=== PATIENT | female | born 1935 | race Caucasian/White ===

== ENCOUNTER 2018-11-17 09:42 | Emergency (ER) | payer MEDICARE, OTHER ==
[~2018-11-17] VITALS: Ht 160 cm; Wt 53.8 kg
[2018-11-17 09:48] VITALS: Ht 160 cm; Wt 53.8 kg
[2018-11-17] MEDS ORDERED: ACETAMINOPHEN 500 MG TAB ONE (10:10)
[2018-11-17] MEDS ORDERED: ACETAMINOPHEN 500 MG TAB PO STA (10:10)
[2018-11-17] MEDS ORDERED: ACET500C5 PO (11:32)
[2018-11-17 12:23] VITALS: BP 139/70; PULSE 88; RESP 18
--- NOTE | 2018-11-17 15:07 | ERD ---
ER Documentation Chief Complaint Chief Complaint Rt kvng pain and knee pain s/p fall x 3 days ago. HPI Patient is a 83-year-old female, brought in by daughters, who presents the ER for concerns of right ankle and knee pain after fall injury 3 days ago. Per patient and her daughters, patient was getting into the car when she slipped and hit her leg on the floor. Patient has been reporting pain throughout her right lower leg. Patient is able to ablate however she lives per daughter. Patient has no fevers or chills. Patient has no previous fractures or dislocations. Patient denies any lightheadedness or dizziness prior to fall injury. ROS All systems reviewed and are negative except as per history of present illness. Medications Home Meds Active Scripts Acetaminophen* (Tylophen*) 500 Mg Capsule, 1 CAP PO Q6H PRN for PAIN AND OR ELEVATED TEMP, #20 CAP Prov:RAUL DEVRIES PA-C 11/17/18 PMhx/Soc Hx Miscellaneous Medical Probl: Yes (ARTHRITIS) Hx Alcohol Use: No Hx Substance Use: No Hx Tobacco Use: No Smoking Status: Never smoker FmHx Family History: No diabetes Physical Exam Vitals Vital Signs Date Temp Pulse Resp B/P (MAP) Pulse Ox O2 O2 Flow FiO2 Time Delivery Rate 11/17/18 98.0 88 18 139/70 99 Room Air 12:23 (93) 11/17/18 97.7 84 18 146/67 99 09:48 (93) Physical Exam GENERAL: Well-developed, well-nourished female. Appears in no acute distress. HEAD: Normocephalic, atraumatic. EYES: Pupils are equally reactive bilaterally. EOMs grossly intact. No conjunctival erythema. ENT: Moist mucous membranes. No uvula deviation. No kissing tonsils. NECK: Supple. No meningismus. Normal range of motion of the neck. LUNG: Clear to auscultation bilaterally. No rhonchi, wheezing, rales or coarse breath sounds. HEART: Regular rate and rhythm. No murmurs, rubs or gallops. EXTREMITIES: Equal pulses bilaterally. No peripheral clubbing, cyanosis or edema. No unilateral leg swelling. NEUROLOGIC: Alert and oriented. Moving all four extremities without any difficulty. Normal speech. Steady gait. RLE: Swelling noted throughout the knee joint as well as the lateral ankle.. Decreased range of motion of the knee and ankle secondary to pain. Tender to palpation over the anterior knee, lateral tibia/fibula and lateral ankle. Tender to palpation of the midfoot. Sensation intact to light touch. Neurovascularly intact. (Able to plantarflex, dorsiflex, nieves foot, invert foot, raise big toe.) 2+ DP and DT pulses. Results 24 hrs Current Medications Medications Dose Sig/Grace Start Time Status Last (Trade) Ordered Route PRN Stop Time Admin Dose Reason Admin 1,000 mg ONCE STAT 11/17/18 DC 11/17/18 Acetaminophen PO 10:10 10:15 (Tylenol 11/17/18 10:11 Tab) 500 mg STK-MED 11/17/18 DC Acetaminophen ONCE .ROUTE 10:10 (Tylenol 11/17/18 10:11 Tab) Procedures/MDM This ED COURSE: The patient was stable throughout ED course. I kept the patient and/or family informed of laboratory and diagnostic imaging results throughout the ED course. PROCEDURES: SPLINT APPLICATION: The patient was verbally consented at bedside prior to splint application. Patient was explained the risks, benefits and alternatives to this procedure. The patient was neurovascularly intact prior to and status post application of the splint. The patient tolerated the procedure well with no complications. Splint type: left short leg splint Extremity: left Indication: Tiny avulsion fracture of the inferior distal right fibula without other fracture or dislocation. MEDICATIONS GIVEN: Tylenol Patient tolerated medication well with no adverse reactions. Patient reported improvement in pain. MEDICAL DECISION MAKING: This is a 83-year-old female, brought in by daughter, presents the ER for concerns of right lower leg pain after trip and fall injury 3 days ago.. Vital signs were reviewed. Patient was afebrile. X-ray imaging of the knee showed moderate to severe degenerative joint changes. No fracture dislocation was noted. Tib-fib was unremarkable except for tiny avulsion fracture of the inferior distal right fibula. No other fractures were noted. See formal report. Patient was placed in short leg splint and given a walker to assist with ambulation. Patient will need to follow-up with wax specialist for further management of her symptoms. Low suspicion for compartment syndrome or septic joint. Unable to rule any ligament or tendon injuries. PRESCRIPTIONS: Tylenol DISCHARGE: At this time, patient is stable for discharge and outpatient management. I have instructed the patient to follow-up with his/her primary care physician in 1-2 days. I have discussed with the patient the possibility of needing to see an wax specialist for further workup and imaging if the pain persists. I have instructed the patient to promptly return to the ER for any new or worsening symptoms including increased pain, swelling, redness, warmth or fever. The patient and/or family expressed understanding of and agreement with this plan. All questions were answered. Home care instructions were provided. Patients blood pressure was elevated (>120/80) but appears stable without evidence of hypertensive emergency, hypertensive urgency or end-organ failure. I had discussion with the patient about the risks of hypertension. I have advised the patient to follow up with his/her primary care physician for outpatient monitoring and treatment for hypertension in 2-3 days. I have instructed the patient to return to the ER for any new or worsening symptoms including chest pain, shortness of breath, headache, blurred vision, confusion, nausea, vomiting or LOC. Disclaimer: Inadvertent spelling and grammatical errors are likely due to EHR/dictation software use and do not reflect on the overall quality of patient care. Also, please note that the electronic time recorded on this note does not necessarily reflect the actual time of the patient encounter. Departure Diagnosis: Primary Impression: Avulsion fracture of right ankle Encounter type: initial encounter Fracture type: closed Qualified Codes: S82.891A - Other fracture of right lower leg, initial encounter for closed fracture Condition: Fair Patient Instructions: Ankle Fracture (Distal Fibula), Closed Referrals: [facility] YOU HAVE RECEIVED A MEDICAL SCREENING EXAM AND THE RESULTS INDICATE THAT YOU DO NOT HAVE A CONDITION THAT REQUIRES URGENT TREATMENT IN THE EMERGENCY DEPARTMENT. FURTHER EVALUATION AND TREATMENT OF YOUR CONDITION CAN WAIT UNTIL YOU ARE SEEN IN YOUR DOCTORS OFFICE WITHIN THE NEXT 1-2 DAYS. IT IS YOUR RESPONSIBILITY TO MAKE AN APPOINTMENT FOR FOLOW-UP CARE. IF YOU HAVE A PRIMARY DOCTOR --you should call your primary doctor and schedule an appointment IF YOU DO NOT HAVE A PRIMARY DOCTOR YOU CAN CALL OUR PHYSICIAN REFERRAL HOTLINE AT IF YOU CAN NOT AFFORD TO SEE A PHYSICIAN YOU CAN CHOSE FROM THE FOLLOWING [facility] [address] [facility] [address] [facility] [address] [facility] [address] [facility] [address] [facility]. [facility]. [address] [facility]. [facility] YOU HAVE RECEIVED A MEDICAL SCREENING EXAM AND THE RESULTS INDICATE THAT YOU DO NOT HAVE A CONDITION THAT REQUIRES URGENT TREATMENT IN THE EMERGENCY DEPARTMENT. FURTHER EVALUATION AND TREATMENT OF YOUR CONDITION CAN WAIT UNTIL YOU ARE SEEN IN YOUR DOCTORS OFFICE WITHIN THE NEXT 1-2 DAYS. IT IS YOUR RESPONSIBILITY TO MAKE AN APPOINTMENT FOR FOLOW-UP CARE. IF YOU HAVE A PRIMARY DOCTOR --you should call your primary doctor and schedule and appointment IF YOU DO NOT HAVE A PRIMARY DOCTOR YOU CAN CALL OUR PHYSICIAN REFERRAL HOTLINE AT . IF YOU CAN NOT AFFORD TO SEE A PHYSICIAN YOU CAN CHOSE FROM THE FOLLOWING [facility] INSTITUTIONS: [facility] [id number] [place] [address] [facility] [address] [place] [address] [facility] [address] [place] [address] [facility] Urgent Care 7 a.m.- 11 p.m. Every Day of the Week NO APPOINTMENT OR AUTHORIZATION NEEDED Additional Instructions: Stay in splint. Follow up with wax specialist. Call your primary care doctor TOMORROW for an appointment during the next 1-2 days.See the doctor sooner or return here if your condition worsens before your appointment time. RAUL DEVRIES PA-C Nov 17, 2018 15:07
== END 2018-11-17 12:32 | disposition home or self-care (01) ==
LOC: FTE 09:42
DX: S82.891A Other fracture of right lower leg, initial encounter for closed fracture (principal); W01.198A Fall on same level from slipping, tripping and stumbling with subsequent striking against other object, initial encounter; Y92.9 Unspecified place or not applicable
CPT/HCPCS: 73562; 73590; 73630